=== PATIENT | male | born 2005 | race Caucasian/White ===

== ENCOUNTER 2024-05-27 16:39 | Emergency (ER) | payer SELFPAY ==
[2024-05-27 17:24] VITALS: PULSE 81; RESP 15; TEMP 98.2; O2SAT 99
[2024-05-27 17:50] LABS: BASOPHILS % 0.5 % (0.0-1.0); EOSINOPHILS # (AUTO) 0.1 (0.0-0.4); EOSINOPHILS % 1.3 % (0.0-6.0); HEMATOCRIT 45.1 % (38.2-49.6); HEMOGLOBIN 14.8 g/dL (14.0-18.0); LYMPHOCYTES # (AUTO) 2.5 (1.0-3.2); LYMPHOCYTES % 29.1 % (18.0-39.1); MEAN CORPUSCULAR HEMOGLOBIN 28.7 pg (28-32); MEAN CORPUSCULAR HGB CONC 32.8 g/dL (31-35); MEAN CORPUSCULAR VOLUME 87.4 fL (81-99); MONOCYTES # (AUTO) 0.9 (0.2-0.8); MONOCYTES % 10.8 % (4.4-11.3); NEUTROPHILS # (AUTO) 4.9 (2.1-6.9); NEUTROPHILS % 57.8 % (38.7-80.0); PLATELET COUNT 220 x10e3/uL (140-360); RED BLOOD COUNT 5.16 x10e6/uL (4.3-5.7); RED CELL DISTRIBUTION WIDTH 12.5 % (11.7-14.4); WHITE BLOOD COUNT 8.44 x10e3/uL (4.8-10.8)
[2024-05-27 17:54] LABS: INR 0.9; PROTHROMBIN TIME 12.6 seconds (11.9-14.5)
[2024-05-27 17:55] LABS: PARTIAL THROMBOPLASTIN TIME 25.9 seconds (23.8-35.5)
[2024-05-27 17:58] LABS: BILIRUBIN,URINE NEGATIVE (NEGATIVE); CLARITY,URINE HAZY (CLEAR); COLOR,URINE YELLOW (YELLOW); GLUCOSE, URINE NEGATIVE (NEGATIVE); KETONES,URINE NEGATIVE (NEGATIVE); LEUKOCYTE ESTERASE ,URINE NEGATIVE (NEGATIVE); NITRITE,URINE NEGATIVE (NEGATIVE); PH,URINE 7 (5 - 7); PROTEIN,URINE DIPSTICK NEGATIVE (NEGATIVE); URINE UROBILINOGEN 0.2 mg/dL (0.2 - 1)
[2024-05-27 18:07] LABS: ALBUMIN 4.5 g/dL (3.5-5.0); ALBUMIN/GLOBULIN RATIO 1.9 (0.8-2.0); BILIRUBIN,TOTAL 0.3 mg/dL (0.2-1.2); CALCIUM 9.5 mg/dL (8.4-10.2); CREATININE, SERUM 1.01 mg/dL (0.72-1.25); TOTAL PROTEIN 6.9 g/dL (6.5-8.1)
[2024-05-27 18:11] LABS: AMORPHOUS SEDIMENT,URINE MANY (FEW); BACTERIA,URINE FEW /HPF; WBC,URINE (MAN) 0-5 /HPF (0-5)
== END 2024-05-27 21:57 | disposition home or self-care (01) ==
LOC: ER 17:41
DX: R31.9 Hematuria, unspecified (principal); Z85.6 Personal history of leukemia
CPT/HCPCS: 36415; 80053; 81001; 85025; 85610; 85730; 99283

== ENCOUNTER 2025-04-08 18:45 | Emergency (ER) | payer SELFPAY ==
[~2025-04-08] VITALS: Ht 172.7 cm; Wt 79.4 kg
[2025-04-08 19:21] LABS: BASOPHILS % 0.8 % (0.0-1.0); EOSINOPHILS % 1.4 % (0.0-6.0); LYMPHOCYTES % 22.7 % (18.0-39.1); MONOCYTES % 8.5 % (4.4-11.3); NEUTROPHILS % 66.0 % (38.7-80.0); RED CELL DISTRIBUTION WIDTH 12.6 % (11.7-14.4)
[2025-04-08 19:36] LABS: EST GLOMERULAR FILTRATION RATE 115.0 ML/MIN (>=60)
[2025-04-08] MEDS ORDERED: NAPROXEN375 MG PO (21:20)
[2025-04-08 21:26] VITALS: PULSE 66; RESP 16; TEMP 98.4; O2SAT 100
== END 2025-04-08 21:33 | disposition home or self-care (01) ==
LOC: ER 18:50
DX: R07.89 Other chest pain (principal); F84.0 Autistic disorder; R94.31 Abnormal electrocardiogram [ECG] [EKG]; Z85.6 Personal history of leukemia
CPT/HCPCS: 36415; 71045; 80053; 84484; 85025; 93005; 99284

== ENCOUNTER 2025-06-23 13:08 | Emergency (ER) | payer SELFPAY ==
[~2025-06-23] VITALS: Ht 172.7 cm; Wt 79.4 kg
[~2025-06-23 13:08] MED LIST: NAPROXEN375 MG PO
[2025-06-23] MEDS ORDERED: CILOXAN3.5 GM OD (13:30)
[2025-06-23 13:39] VITALS: PULSE 77; RESP 18; TEMP 98.7
[2025-06-23 13:40] VITALS: BP 125/78; PULSE 82; RESP 18; O2SAT 99
== END 2025-06-23 13:54 | disposition home or self-care (01) ==
LOC: ER 13:12
DX: H10.9 Unspecified conjunctivitis (principal); F84.0 Autistic disorder; F90.9 Attention-deficit hyperactivity disorder, unspecified type; Z85.6 Personal history of leukemia
CPT/HCPCS: 99283